=== PATIENT | male | born 1955 | race Two or more races ===

== ENCOUNTER 2021-10-30 15:56 | Emergency (ER) | payer OTHER ==
[~2021-10-30] VITALS: Ht 170.2 cm; Wt 72.7 kg
[2021-10-30] MEDS ORDERED: PROPARACAINE HCL 0.5% 15 ML OPHTHALMIC SOLUTION OD ONE (16:15)
[2021-10-30] MEDS ORDERED: FLUORESCEIN SODIUM 1 MG STRIP OD ONE (16:15)
[2021-10-30 16:43] VITALS: BP 119/61
[2021-10-30] MEDS ORDERED: OFLOXACIN 0.3% 5 ML OPHTHALMIC SOLUTION OD ONE (16:45)
== END 2021-10-30 17:09 | disposition home or self-care (01) ==
LOC: EMS 15:58
DX: T15.01XA Foreign body in cornea, right eye, initial encounter (principal); X58.XXXA Exposure to other specified factors, initial encounter; Y93.89 Activity, other specified; Y92.89 Other specified places as the place of occurrence of the external cause; Y99.8 Other external cause status
CPT/HCPCS: 65222; 99284; Z7502; Z7610